=== PATIENT | male | born 1970 | race Caucasian/White ===

== ENCOUNTER 2018-12-26 11:28 | Emergency (ER) | payer SELFPAY ==
[2018-12-26 13:11] VITALS: BP 146/76
--- NOTE | 2018-12-26 13:12 | ED ---
Laceration/Wound HPI - HPI Summary HPI Summary: Patient is a 48-year-old male presenting to the ED with a left eyebrow laceration. He states a piece of plywood came down over his eyebrow and lacerated the area. He was seen at [facility] and was sent here due to the laceration being too complex. Denies any headache. Denies any blood thinners. Denies any LOC. Patient states he is otherwise healthy and denies any other concerns. - History of Current Complaint Stated Complaint: LEFT EYE INJURY PER PT Time Seen by Provider: 12/26/18 11:47 Hx Obtained From: Patient Mechanism of Injury: Sharp/Blunt Trauma Onset/Duration: Sudden Onset Aggravating: Movement Alleviating: Compression Timing: Constant Onset Severity: Moderate Current Severity: Moderate Pain Intensity: 10 Pain Scale Used: 0-10 Numeric Associated Signs & Symptoms: Negative - Allergy/Home Medications Allergies/Adverse Reactions: Allergies Allergy/AdvReac Type Severity Reaction Status Date / Time doxycycline Allergy Hives Verified 12/26/18 11:35 PMH/Surg Hx/FS Hx/Imm Hx Previously Healthy: Yes - Immunization History Date of Tetanus Vaccine: 04/2018 Hx Pertussis Vaccination: No Immunizations Up to Date: Yes Infectious Disease History: No Infectious Disease History: Denies: Traveled Outside the [place] in Last 30 Days - Social History Occupation: Employed Full-time Lives: With Family Alcohol Use: Occasionally Hx Substance Use: No Substance Use Type: Reports: None Hx Tobacco Use: Yes Smoking Status (MU): Heavy Every Day Tobacco Smoker Review of Systems Constitutional: Negative Negative: Fever, Chills, Fatigue, Skin Diaphoresis Negative: Palpitations, Chest Pain Negative: Shortness Of Breath, Cough Genitourinary: Negative Positive: no symptoms reported, see HPI Negative: Arthralgia, Myalgia Positive: Other - 3.5cm complicated/irregular laceration Neurological: Negative All Other Systems Reviewed And Are Negative: Yes Physical Exam Triage Information Reviewed: Yes Vital Signs On Initial Exam: Initial Vitals Temp Pulse Resp BP Pulse Ox 98.1 F 84 16 145/79 96 12/26/18 11:32 12/26/18 11:32 12/26/18 11:32 12/26/18 11:32 12/26/18 11:32 Vital Signs Reviewed: Yes Appearance: Positive: Well-Appearing, Well-Nourished Skin: Positive: Warm, Skin Color Reflects Adequate Perfusion, Other - 3.5cm complicated/irregular laceration Eyes: Positive: Conjunctiva Clear Neck: Positive: Supple, No Lymphadenopathy Respiratory/Lung Sounds: Positive: Clear to Auscultation, Breath Sounds Present Cardiovascular: Positive: RRR, Pulses are Symmetrical in both Upper and Lower Extremities Musculoskeletal: Positive: Strength/ROM Intact Neurological: Positive: Speech Normal Psychiatric: Positive: Affect/Mood Appropriate Procedures - Laceration/Wound Repair 1 Location: face Description: Irregular Anesthesia: 1.0% Length, Depth and Shape: 3.5 length, 1cm depth, 2cm width Betadine Prep?: No Irrigated w/ Saline (ccs): 40 Laceration/Wound Explored: clean Closure: Single Layer - 11 Suture Type: Prolene Number of Sutures: 11 Layer Closure?: No Sterile Dressing Applied?: Yes Diagnostics - Vital Signs Vital Signs Temp Pulse Resp BP Pulse Ox 12/26/18 11:32 98.1 F 84 16 145/79 96 - Laboratory Lab Statement: Any lab studies that have been ordered have been reviewed, and results considered in the medical decision making process. Laceration Repair Course/Dx - Course Course Of Treatment: During his course of treatment, the patient's evaluated for laceration. Patient was sent here for complicated laceration. Physical examination, there is a large 3 cm in length and 1 cm in depth ration extending through the eyebrow, complicated and and irregular. Washout. 2ml lidocaine without epinephrine with good effect. 11 sutures placed using 5-0 Prolene, simple interrupted. Patient tolerated well. He is given tramadol for pain control. He will ice the area. - Differential Dx Differental Diagnoses: Laceration, Other - hematoma, head injury, eye injury - Clinical Impression Provider Diagnoses: Laceration Discharge - Sign-Out/Discharge Documenting (check all that apply): Patient Departure Patient Received Moderate/Deep Sedation with Procedure: No - Discharge Plan Condition: Stable Disposition: HOME Prescriptions: traMADol TAB* [Ultram*] 50 mg PO Q8H PRN #6 tab MDD pain PRN Reason: Pain Patient Education Materials: Care For Your Stitches (ED), Laceration (ED) Referrals: No Primary Care Phys,NOPCP [Primary Care Provider] - Additional Instructions: Sutures out in 7 days Ice to the area Tylenol 650mg three times daily Tramadol 50mg three times daily Take these on opposite schedule - Billing Disposition and Condition Condition: STABLE Disposition: Home
== END 2018-12-26 13:09 | disposition home or self-care (01) ==
LOC: ED 11:28
DX: S01.112A Laceration without foreign body of left eyelid and periocular area, initial encounter (principal); F17.210 Nicotine dependence, cigarettes, uncomplicated; W20.8XXA Other cause of strike by thrown, projected or falling object, initial encounter
CPT/HCPCS: 12013; 99281